=== PATIENT | male | born 1990 | race Caucasian/White ===

== ENCOUNTER 2017-01-21 00:17 | Emergency (ER) | payer OTHER ==
[2017-01-21] MEDS ORDERED: IOPAMIDOL 370 (76%) 100 ML VIAL IV ONE (00:18)
[2017-01-21] MEDS ORDERED: MAALOX/LIDO2%VISC/SIMETHICONE 40 ML BOT ONE (01:18)
[2017-01-21] MEDS ORDERED: ONDANSETRON 4 MG/2ML 2 ML VIAL ONE (01:19)
[2017-01-21] MEDS ORDERED: LACTATED RINGERS 1,000 ML ONE (01:19)
[2017-01-21 01:22] LABS: ABSOLUTE NEUTROPHIL COUNT 11.6 K/mm3 (1.8-7.7); BASO % 0.3 % (0.2-1.0); EOS # 0.1 (0.0-0.5); EOS % 0.9 % (0.9-2.9); HEMATOCRIT 45.8 % (32.0-52.0); HEMOGLOBIN 15.6 gm/l (14.0-18.0); IMM NEUT% 0.3 % (0-1); LYMPH # 2.3 (1.0-4.8); MEAN CELL VOLUME 89.8 fl (80.0-94.0); MEAN CORPUSCULAR HEMOGLOBIN 30.6 pg (27.0-31.0); MEAN CORPUSCULAR HGB CONC 34.1 g/dl (33.0-37.0); MEAN PLATELET VOLUME 10.5 fl (7.4-10.4); MONO # 1.2 (0.0-0.8); MONO % 8.1 % (4-12); NEUT % 75.4 % (43-75); PLATELET COUNT 253 K/mm3 (130-400); RED CELL DISTRIBUTION WIDTH 13.3 % (11.5-14.5)
[2017-01-21 01:38] LABS: ALB/GLOB RATIO 1.4 (>1.0); ALBUMIN 4.1 gm/dL (3.5-5.7)
[2017-01-21 01:44] LABS: PH,URINE 6.5 (5.0-8.0); SPECIFIC GRAVITY 1.015 (1.001-1.030); URINE BILIRUBIN NEGATIVE (NEGATIVE); URINE BLOOD NEGATIVE (NEGATIVE); URINE GLUCOSE (UA) NEGATIVE (NEGATIVE); URINE LEUKOCYTE ESTERASE TRACE (NEGATIVE); URINE NITRITE NEGATIVE (NEGATIVE); URINE PROTEIN NEGATIVE (NEGATIVE); URINE UROBILINOGEN NORMAL (0-1 mg/dl)
[2017-01-21 01:45] LABS: URINE APPEARANCE SL CLOUDY; URINE COLOR YELLOW
[2017-01-21 01:49] LABS: URINE EPITHELIAL CELLS 0-1 /hpf; URINE WBC 0-1 /hpf
--- NOTE | 2017-01-21 08:23 | CT ---
CT ABDOMEN AND PELVIS WITH CONTRAST HISTORY: Nausea, abdominal pain. TECHNIQUE: Following intravenous administration of 100cc of Isovue-370, contiguous axial images were acquired from the lung bases to the ischial tuberosities. Oral contrast was not administered. COMPARISON:None. FINDINGS: LUNG BASES: No gross airspace consolidation or pleural effusion. LIVER: No focal lesion. SPLEEN: No focal lesion. PANCREAS: No focal lesion. ADRENAL GLANDS: No mass effect. KIDNEYS: No focal lesion. No collecting system dilatation. GALLBLADDER: Present. BOWEL: Moderate fecal loading. Limited assessment of the distal colon due to decompression. No abnormal small bowel dilatation. Sigmoid diverticulosis without diverticulitis. APPENDIX: Normal gas-filled appendix. PELVIC ORGANS: No gross mass effect. Nonspecific prominence of the left ovarian vein. FREE FLUID: No gross free fluid identified. ABDOMINOPELVIC LYMPH NODES: No abnormally enlarged lymph nodes identified. ABDOMINAL AORTA: Normal caliber. OSSEOUS STRUCTURES: No grossly destructive lesions. IMPRESSION: 1. Noninflammatory, nonobstructive appearance of bowel. Normal appendix. 2. No free fluid. 3. No evidence of upper urinary tract obstruction. 4. Sigmoid colonic diverticulosis without diverticulitis. Preliminary report relayed to the Emergency Medicine medical service by Dr. Mcdonough on 01/21/2017 at 0318 hours.
== END 2017-01-21 04:23 | disposition home or self-care (01) ==
LOC: ED 00:17
DX: R10.9 Unspecified abdominal pain (principal); R11.0 Nausea; S80.861A Insect bite (nonvenomous), right lower leg, initial encounter
CPT/HCPCS: 83690; 85025; 80053; 81001; 74177; 99284 ×2; 96374; 96361 ×2; A9270; J2405; J7120; Q9967

== ENCOUNTER 2017-03-25 19:07 | Emergency (ER) | payer OTHER ==
--- NOTE | 2017-03-25 21:56 | CT ---
Name: DIA FELIZ Exam: CT head without contrast Comparison: None Clinical history: Hypertension. Left vision change. Technique: Helical CT was performed through the head. Angled axial reconstructions were obtained. Sagittal and coronal reconstructions were obtained as well. No contrast was given. An automated dose reduction technique was used to minimize patient radiation dose. Findings: There is no shift of the midline structures. Ventricles are of normal size and configuration. There is no mass, mass effect or hemorrhage. Cisterns are uneffaced. Posterior fossa is unremarkable. Visualized paranasal sinuses and mastoid air cells are normal. There is no fracture. Impression: Negative unenhanced CT of the head Note: The above report was uploaded to [facility]'s electronic medical records system at 2152 hours.
== END 2017-03-25 22:56 | disposition home or self-care (01) ==
LOC: ED 19:07
DX: G93.2 Benign intracranial hypertension (principal)